=== PATIENT | male | born 1945 | race Caucasian/White ===

== ENCOUNTER 2019-09-30 14:25 | Emergency (ER) | payer MEDICARE, SELFPAY ==
[2019-09-30 14:55] VITALS: BP 149/70; PULSE 106; RESP 20; TEMP 36.9; O2SAT 96
--- NOTE | 2019-09-30 15:11 | ED.GENADULT ---
HPI - General Adult General Chief complaint: Back Pain/Injury Stated complaint: back pain Source: patient Mode of arrival: ambulatory Limitations: no limitations History of Present Illness HPI narrative: 74 y.o. developed pain in his posterior neck, along bridge of his trapezius muscles, and between his shoulder blades which started 5 days ago. He has pain particularly when he goes from supine to standing or sitting to standing. If he moves around the pain started to subside. He has had pain with the movement of his neck in all ranges of motion of new onset. He denies pain numbness weakness in his arms forearms hands of recent onset. He does have chronic problems with loss of sensation in his 1st 2nd and 3rd digits of both hands. 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 He denies any recent falls or injuries. Denies pain in jaw, tongue, throat with chewing. Denies visual changes/headache. Quality: sharp Pain Consistency: constant Relieving factors: movement Related Data Home Medications Medication Instructions Recorded Confirmed amlodipine 10 mg PO DAILY 09/30/19 09/30/19 aspirin,buffd-calcium carb-mag 325 mg PO DAILY 09/30/19 09/30/19 [Buffered Aspirin] losartan 50 mg PO DAILY 09/30/19 09/30/19 metoprolol tartrate 100 mg PO DAILY 09/30/19 09/30/19 simvastatin 20 mg PO DAILY 09/30/19 09/30/19 tamsulosin 0.4 mg PO DAILY 09/30/19 09/30/19 Allergies Allergy/AdvReac Type Severity Reaction Status Date / Time No Known Allergies Allergy Verified 09/30/19 14:44 Review of Systems Constitutional: Constitutional: Reports as per HPI Eyes: Eyes: Reports no additional eye complaints ENT: Denies dysphagia and Denies sore throat Cardiovascular: Cardiovascular: Denies chest pain Respiratory: Respiratory: Denies cough and Denies dyspnea Gastrointestinal: Gastrointestinal: Denies abdominal pain, Denies diarrhea and Denies vomiting Genitourinary: Genitourinary: Denies dysuria Musculoskeletal: Musculoskeletal: Reports no additional musculoskeletal complaints and Denies myalgias Integumentary/Breasts: Skin/Breast: Denies rash Neurologic: Denies focal weakness and Denies numbness Endocrine: Endocrine: Denies polyuria Hematologic/Lymphatic: Hematologic/Lymphatic: Denies easy bruising Allergic/Immunologic: Allergic/Immunologic: Denies lip swelling PMFSH Past Medical History Medical History (Updated 09/30/19 @ 16:12 by Cristobal Rushing MD) HTN (hypertension) Myocardial infarct Surgical History Surgical History (Updated 09/30/19 @ 15:28 by Cristobal Rushing MD) Hx of appendectomy Stented coronary artery Social History Social History (Updated 09/30/19 @ 15:29 by Cristobal Rushing MD) Smoking status: Current every day smoker Exam Narrative: Exam Narrative: Healthy, cheery. Sitting on side of bed. Const: Orientation/consciousness: patient oriented x3 HENMT: Face and sinus: normal facial exam and no sinus tenderness Mouth: Yes moist mucous membranes Other: no temporal artery tenderness. Eyes: EOM: EOMs intact bilaterally Neck: Neck: no lymphadenopathy Chest: Chest palpation & inspection: normal inspection of the chest Resp: Effort & Inspection: normal respiratory effort Auscultation: diminished lung sounds Cardio: Rate: regular rate Rhythm: regular rhythm GI: GI Palp: Yes Soft to palpation, No Tenderness to palpation present (GI) and No Guarding due to palpation present (GI) Back/Spine/Pelvis: Other: Tender along the cervical paraspinal muscles. No tenderness along visions trapezius muscles rhomboids or upper back muscles. Does describe pain here there is tenderness. No muscle spasm appreciated. He has approximately 30? at all it in all cervical directions with pain in shoulders the endpoint. He has full painless shoulder abduction. Spurling's maneuver is positive for pain in the trapezius regions Skin: Ra
[2019-09-30 15:20] VITALS: BP 130/70
[2019-09-30 15:21] VITALS: BP 130/67
[2019-09-30 15:38] LABS: Basophils Absolute Auto 0.03 K/mm3 (0.00-0.10); Basophils Percent Auto 0.2 % (0.0-1.0); Eosinophils Absolute Auto 0.24 K/mm3 (0.02-0.50); Eosinophils Percent Auto 1.9 % (1.0-6.0); Hematocrit 45.1 % (37.0-46.0); Hemoglobin 15.1 g/dL (12.4-15.3); Immature Granulocyte Absolute 0.03 K/mm3 (0.00-0.00); Immature Granulocyte Percent A 0.2 % (0.0-0.0); Lymphocytes Absolute Auto 2.24 K/mm3 (1.10-4.50); Lymphocytes Percent Auto 18.1 % (18.0-42.0); Mean Corpuscular HGB Conc 33.5 g/dL (32.0-36.0); Mean Corpuscular Hemoglobin 30.3 pg (27.0-31.0); Mean Corpuscular Volume 90.6 fL (78.0-102.0); Mean Platelet Volume 9.7 fl (8.7-11.0); Monocytes Absolute Auto 1.64 K/mm3 (0.10-0.90); Monocytes Percent Auto 13.3 % (2.0-11.0); Neutrophils Absolute Auto 8.2 K/mm3 (1.7-7.2); Neutrophils Percent Auto 66.3 % (50.0-70.0); Platelet Count Result 237 K/mm3 (150-420); Red Blood Count 4.98 M/mm3 (4.70-6.10); Red Cell Distribution Width 13.9 % (11.6-14.4); White Blood Count 12.4 K/mm3 (4.8-10.8)
[2019-09-30 15:47] LABS: Anion Gap 17.6 mmol/L (7-16); Blood Urea Nitrogen 17 mg/dL (7-18); CRP 8.7 mg/dL (0.0-0.9); Calcium 9.1 mg/dL (8.5-10.1); Carbon Dioxide 23 mmol/L (21-32); Chloride 104 mmol/L (98-108); Estimated Glomerular Filt Rate > 60; Glucose 123 mg/dL (70-99); Osmolality Calculated 294 mOsm/kg (285-295); Potassium 3.6 mmol/L (3.5-5.1); Sodium 141 mmol/L (136-145)
[2019-09-30 16:36] LABS: Erythrocyte Sedimentation Rate 28 mm/hr (0-20)
[2019-09-30] MEDS: predniSONE 20 MG TABLET PO (16:38)
[2019-09-30 16:42] VITALS: BP 139/70
--- NOTE | 2019-09-30 16:52 | PC.NURSE ---
PREDNISONE AND NORCO SENT TO [facility] - [facility] HAS A DIFFICULT TIME SENDING RX - ONE RX PREDNISONE ONE RX NORCO SENT - PLEASE DISREGARD SECOND ORDER -
== END 2019-09-30 16:50 | disposition home or self-care (01) ==
PROVIDERS: Emergency Provider Family Medicine
DX: M35.3 Polymyalgia rheumatica (principal); I10 Essential (primary) hypertension; I25.2 Old myocardial infarction; F17.200 Nicotine dependence, unspecified, uncomplicated
CPT/HCPCS: 36415; 80048; 85025; 85652; 86140; 99283; A9270; J7512

== ENCOUNTER 2019-10-31 09:55 | Outpatient (CLI) | payer MEDICARE, SELFPAY ==
[2019-10-31 10:18] LABS: Hemoglobin A1C 5.7 % (<5.7)
== END 2019-10-31 09:56 | disposition home or self-care (01) ==
LOC: CHSLAB 09:58
PROVIDERS: PCP Family Medicine; Visit Provider Family Medicine
DX: R73.09 Other abnormal glucose (principal)
CPT/HCPCS: 36415; 83036

== ENCOUNTER 2021-01-22 10:14 | Outpatient (CLI) | payer MEDICARE, SELFPAY ==
--- NOTE | ~2021-01-22 | XR_ITS ---
EXAMINATION: XR lumbar spine 2-3V EXAM DATE: 01/22/2021 10:34 INDICATION: left side back pain x 5 weeks. TECHNIQUE: Lumber spine frontal, lateral, lateral L5-S1 projections for interpretation. There is no prior study for comparison. FINDINGS: Moderate-sized left lateral bridging osteophytes at L2-3. Mild diffuse lumbar disc disease . Mild upper lumbar, mild to moderate lower lumbar facet arthropathy. Mild to moderate abdominal aort ic arteriosclerosis. Sacrum, sacroiliac joints, sacral arcuate lines are intact. Minimal lumbar dextr ocurvature. Vertebral body heights are maintained. The vertebral bodies are aligned in the AP dimensi on. IMPRESSION: 1. Mild to moderate lumbar spondylosis. 2. No acute findings. Reviewed, dictated and finalized at location B.
[2021-01-22 11:12] LABS: Prostate Specific Antigen 1.3 ng/mL (< OR = 4.0)
== END 2021-01-22 10:15 | disposition home or self-care (01) ==
LOC: CHSLAB 10:17
PROVIDERS: PCP Family Medicine; Visit Provider Family Medicine
DX: R35.0 Frequency of micturition (principal); M54.9 Dorsalgia, unspecified; G89.29 Other chronic pain
CPT/HCPCS: 36415; 72100; 84153; G0103

== ENCOUNTER 2021-01-26 08:55 | Outpatient (RCR) | payer MEDICARE, SELFPAY ==
--- NOTE | 2021-01-26 13:48 | PTOPEVAL ---
Thank you for referring Hung Kirby to [facility].? The patient is scheduled to be seen for therapy? ____x/week for ___ weeks. Please review, sign, date and return this plan of care TIMMY. I agree with and certify that the following plan of care is medically necessary. Referring Physician Date Admitting Provider: Attending Provider: Jamarcus Juarez DO Referring Provider: *PT Outpatient Evaluation Start: 01/26/21 09:10 Freq: Status: Active Protocol: Document 01/26/21 09:00 [facility] (Rec: 01/26/21 10:31 [facility] [id number]) Therapy Assessment Status Assessment Status Assessment Status Evaluation Outpatient Past Medical History Cardiovascular History Hx Cardiac Catheterization Yes Hx Coronary Stent Yes Hx Myocardial Infarction Yes Musculoskeletal History Hx Back Pain Yes Evaluation Information Problem Diagnosis dorsalgia Onset 01/22/21 Additional Evaluation Detail oswestry = 44% functionally declined Subjective Information Hung Kirby is a 75 year old Query Text:As Reported By Patient/ male who reports L LBP and Family upper L hip pain. Started 6 weeks ago, suddenly started, can't remember doing something that caused it. No reports of numbness or tingling. Sitting decreases pain, and pain increases with standing after 3 min. Rx for pain killer, and injection into R hip. cyclobenzoprin for pain (takes 3x/day). Difficulty sleeping prior to onset of pain. X-ray last week during appointment w MD, he is not sure if it was either hip or LB - reports that it came back negative. No reported falls in past year. 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
--- NOTE | 2021-03-03 08:52 | PCPTNOTE ---
I agree with and certify that the above recommended change(s) to the plan of care are medically necessary. ? Referring Physician?Date Admitting Provider: Attending Provider: Jamarcus Juarez, Referring Provider: PROGRESS REPORT Hung Kirby has completed a total number of 4 treatment sessions for DORSALGIA since 01/26/21. Summary of Progress: Mr. Kirby has been called on 03/03/21 and reports he is doing well and will not be returning to therapy. Recommendations: Patient will be discharged from skilled PT services due to lack of return/completion of POC. Thank you for referring Hung Kirby to [facility].? The patient is being discharged from skilled PT services as of this date.
== END 2021-02-04 09:44 | disposition home or self-care (01) ==
LOC: CHSPT 08:55
PROVIDERS: PCP Family Medicine; Visit Provider Family Medicine
DX: M54.9 Dorsalgia, unspecified (principal); G89.29 Other chronic pain
CPT/HCPCS: 97014; 97110; 97161; 97530; G0283

== ENCOUNTER 2021-11-19 13:00 | Emergency (ER) | payer MEDICARE, SELFPAY ==
--- NOTE | ~2021-11-19 | XR_ITS ---
XR ankle RT 2V DATE: 11/19/2021 13:46 INDICATION: Ankle and foot injury one week ago. Medial ankle and foot pain. TECHNIQUE: AP and lateral views COMPARISON: None FINDINGS: There is mild soft tissue swelling of the ankle. No fracture or dislocation of the ankle or disruption of the ankle mortise is evident. Distal Achilles tendon tendon calcification. Plantar calcaneal enthesopathy. IMPRESSION: Mild soft tissue swelling; no fracture or dislocation of the ankle Plantar calcaneal enthesopathy Reviewed, dictated and finalized at location A.
--- NOTE | ~2021-11-19 | XR_ITS ---
XR foot RT 2V DATE: 11/19/2021 13:47 INDICATION: Ankle or foot injury one week ago. Pain. TECHNIQUE: AP and lateral views COMPARISON: None FINDINGS: Plantar calcaneal enthesopathy. Distal Achilles tendon calcification. There is mild loss of joint space at the first metatarsophalangeal joint. There is old healed fracture deformity of the distal shaft of the fifth metatarsal bone. No recent fracture or dislocation, periosteal reaction or bone destruction. IMPRESSION: Plantar calcaneal enthesopathy Distal Achilles tendon calcification Mild osteophyte is at first metatarsophalangeal joint Old distal fifth metatarsal shaft fracture Reviewed, dictated and finalized at location A.
[2021-11-19 13:05] VITALS: BP 148/68; PULSE 97; RESP 18; TEMP 36.3; O2SAT 97
--- NOTE | 2021-11-19 13:43 | ED.LOWEXIN ---
HPI - Extremity Injury (Lower) General Chief Complaint: Extremity Injury, Lower Stated Complaint: R ankel/foot pain Source: family Mode of arrival: ambulatory Limitations: no limitations History of Present Illness HPI Narrative: this is a 76-year-old gentleman that presents after he twisted his right foot and ankle after he fell at home hurting his right foot and ankle approximately 1 week ago has been doing okay but over the last 24hours the pain intensified and has been having some trouble with some walking because of pain, and some swelling. complaint: ankle injury and foot injury Injury: Right: ankle ( tenderness with palpation) and foot ( tenderness with palpation and movement) Type of Injury: inversion and eversion Place: home Severity: moderate Severity scale (1-10): 6 Relieving factors: NSAID Exacerbating factors: weight bearing, movement and palpation Context: fall Associated symptoms: swelling Related Data Home Medications Medication Instructions Recorded Confirmed amlodipine 10 mg PO DAILY 11/19/21 11/19/21 atorvastatin 40 mg PO DAILY 11/19/21 11/19/21 losartan 50 mg PO DAILY 11/19/21 11/19/21 metoprolol tartrate 100 mg PO DAILY 11/19/21 11/19/21 tamsulosin 0.4 mg PO DAILY 11/19/21 11/19/21 Allergies Allergy/AdvReac Type Severity Reaction Status Date / Time No Known Allergies Allergy Verified 11/19/21 13:17 Review of Systems Review of Systems: All systems reviewed & are unremarkable except as noted in HPI and below PMFSH Past Medical History Medical History History of ME (myocardial infarction) HTN (hypertension) Hyperlipidemia Myocardial infarct 10-22-2010 Surgical History Surgical History Hx of appendectomy Stented coronary artery Family History Family History Other Family history of coronary artery disease Social History Social History Smoking status: Current every day smoker Tobacco type: cigarettes Additional living arrangements comments: . 1 adult child. Exam Const: General: no acute distress and alert Orientation/consciousness: patient oriented x3 HENMT: Head: normal to inspection Eyes: Conjunctivae: conjunctivae normal Pupils: Equal, round and reactive pupils present Neck: Neck: normal visual inspection, no lymphadenopathy and no meningeal signs Chest: Chest palpation & inspection: normal inspection of the chest Resp: Effort & Inspection: normal respiratory effort Cardio: Rate: regular rate Rhythm: regular rhythm GI: GI Palp: Yes Soft to palpation Percussion: Yes normal to percussion Urinary Catheter: Urinary Catheter: patent and draining Back/Spine/Pelvis: Back: no CVA tenderness Skin: General skin exam: normal color Rashes: no rashes Extrem: Other: Right lower ankle and foot swelling and pain with movement and palpation Psych: Mental Status: mental status grossly normal Course Course Emergency Course: Patient received IM Toradol and after reassessment pain level has improved, will apply Jaciel wrap, and x-rays of the foot and ankle reviewed which showed no acute fractures. Vital Signs Vital signs: Vital Signs Temperature 36.3 C L 11/19/21 13:05 Pulse Rate 97 11/19/21 13:05 Respiratory Rate 18 11/19/21 13:05 Blood Pressure 148/68 H 11/19/21 13:05 Pulse Oximetry 97 11/19/21 13:05 Temperature 36.3 C L 11/19/21 13:05 Pulse Rate 97 11/19/21 13:05 Respiratory Rate 18 11/19/21 13:05 Blood Pressure 148/68 H 11/19/21 13:05 Pulse Oximetry 97 11/19/21 13:05 Critical Care Time Critical Care Time Critical Care Time: No Discharge Plan Discharge Clinical Impression: Ankle sprain and strain Patient Disposition: Home, Self-Care Condition: Stable Instructions: Antibiotic
[2021-11-19] MEDS: KETOROLAC 30 MG/ML VIAL (*BKC) IM (13:53)
[2021-11-19 14:27] VITALS: BP 132/70; PULSE 85; RESP 16; TEMP 36.8; O2SAT 97
== END 2021-11-19 14:30 | disposition home or self-care (01) ==
PROVIDERS: Emergency Provider Emergency Medicine; PCP Family Medicine
DX: S93.401A Sprain of unspecified ligament of right ankle, initial encounter (principal); W19.XXXA Unspecified fall, initial encounter; I10 Essential (primary) hypertension; E78.5 Hyperlipidemia, unspecified; F17.200 Nicotine dependence, unspecified, uncomplicated
CPT/HCPCS: 73600; 73620; 96372; 99283; J1885

== ENCOUNTER 2023-06-07 10:11 | Outpatient (CLI) | payer MEDICARE, SELFPAY ==
[2023-06-07 10:27] LABS: Basophils Absolute Auto 0.03 K/mm3 (0.00-0.10); Basophils Percent Auto 0.4 % (0.0-1.0); Eosinophils Absolute Auto 0.22 K/mm3 (0.02-0.50); Eosinophils Percent Auto 3.3 % (1.0-6.0); Hematocrit 45.4 % (37.0-46.0); Hemoglobin 15.3 g/dL (12.4-15.3); Immature Granulocyte Absolute 0.02 K/mm3 (0.00-0.00); Immature Granulocyte Percent A 0.3 % (0.0-0.0); Lymphocytes Absolute Auto 1.41 K/mm3 (1.10-4.50); Mean Corpuscular HGB Conc 33.7 g/dL (32.0-36.0); Mean Corpuscular Hemoglobin 31.7 pg (27.0-31.0); Mean Platelet Volume 9.3 fl (8.7-11.0); Monocytes Absolute Auto 0.76 K/mm3 (0.10-0.90); Monocytes Percent Auto 11.3 % (2.0-11.0); Neutrophils Absolute Auto 4.3 K/mm3 (1.7-7.2); Neutrophils Percent Auto 63.7 % (50.0-70.0); Platelet Count Result 239 K/mm3 (150-420); Red Blood Count 4.83 M/mm3 (4.70-6.10); Red Cell Distribution Width 13.7 % (11.6-14.4); White Blood Count 6.7 K/mm3 (4.8-10.8)
[2023-06-07 10:59] LABS: Alanine Aminotransferase 12 U/L (16-63); Albumin Level 3.8 g/dL (3.4-5.0); Alkaline Phosphatase 87 U/L (46-116); Anion Gap 12 mmol/L (8-16); Aspartate Amino Transferase 21 U/L (15-37); Bilirubin,Total 0.6 mg/dL (0.00-1.00); Blood Urea Nitrogen 10 mg/dL (7-18); Carbon Dioxide 25 mmol/L (21-32); Chloride 105 mmol/L (98-108); Cholesterol 118 mg/dL (0-200); Estimated Glomerular Filt Rate > 60; Glucose 105 mg/dL (70-99); HDL Direct 38 mg/dL (40-60); LDL Cholesterol Calculated 50 mg/dL (<130); Osmolality Calculated 293 mOsm/kg (285-295); Potassium 4.4 mmol/L (3.5-5.1); Sodium 142 mmol/L (136-145); Total Protein 7.1 g/dL (6.4-8.2); Triglycerides 149 mg/dL (0-150)
== END 2023-06-07 10:12 | disposition home or self-care (01) ==
LOC: CHSLAB 10:13
PROVIDERS: PCP Family Medicine; Visit Provider Family Medicine
DX: I10 Essential (primary) hypertension (principal)
CPT/HCPCS: 36415; 80053; 80061; 85025

== ENCOUNTER 2025-04-18 07:58 | Outpatient (CLI) | payer MEDICARE, SELFPAY ==
--- OUTSIDE RECORDS SUMMARY | 2025-04-18 08:02 | XMS_ITS | Patient Health Record ---
Author Organization [facility] Address [address] [place], [place] [id number] Care Team Providers Care Meeting Coordinator Name Role Phone EsthelaDEVYN jimenez Unavailable [phone] Jamarcus Juarez Unavailable Unavailable Reason For Referral No Information Medications Medication SIG (Take, Route, Frequency, Duration) Notes Start Date End Date Status naproxen sodium 220 MG Oral Capsule [Aleve] ORAL naproxen sodium 220 MG Oral Capsule [Aleve]Original Medicationnaproxen sodium 220 MG Oral Capsule [Aleve] *Reorder from [employer] for eRx and Interaction Alerts* 03/16/2021 Active Plan Of Treatment No Information Insurance Providers Payer Name Payer Address Payer Phone Subscriber Number Group Number Insured Name Patient Relationship to Insured Coverage Start Date Coverage End Date Medicare Part B [place] [address] [place] [phone] [id number] VALERIY GARSIA Self - patient is the insured [facility] ([facility]) ATTN CLAIMS [address] [place] [address] [id number] VALERIY GARSIA Self - patient is the insured
--- OUTSIDE RECORDS SUMMARY | 2025-04-18 08:02 | XMS_ITS | Clinical Summary ---
Author Organization [facility] Address [address] [place] [id number] Care Team Providers Care Risk Investigator Name Role Phone Unavailable Primary Care Provider Unavailabl e Social History Tobacco Use Types Packs/Day Years Used Date Smoking Tobacco: Smoker, Current Status Unknown Sex and Gender Information Value Date Recorded Sex Assigned at Not on file Legal Sex Male 9:59 PM CDT Gender Identity Not on file Sexual Orientation Not on file Last Filed Vital Signs Vital Sign Reading Time Taken Comments Blood Pressure 170/100 07/06/2011 11:06 AM [employer]ICE NETWORK ENGINEER Pulse 80 07/06/2011 11:05 AM VOICE NETWORK ENGINEER Temperature 36.5 C (97.7 F) 07/06/2011 11:05 AM VOICE NETWORK ENGINEER Respiratory Rate 16 07/06/2011 11:05 AM VOICE NETWORK ENGINEER Oxygen Saturation - - Inhaled Oxygen Concentration - - Weight 79.2 kg (174 lb 8 oz) 07/06/2011 11:05 AM VOICE NETWORK ENGINEER Height 172.7 cm (5' 8) 07/06/2011 11:05 AM VOICE NETWORK ENGINEER Body Mass Index 26.53 07/06/2011 11:05 AM VOICE NETWORK ENGINEER Plan of Treatment Health Maintenance Due Date Last Done Comments Hepatitis C 1963 DTaP, Tdap and Td Vaccines ( 1 - Tdap) 1966 Pneumococcal Vaccine: 50+ Ye ars (1 of 1 - PCV) 1997 Zoster Vaccines (1 of 2) 1997 RSV Immunization or 60+ Years (1 - 1-dose 75+ series) 2022 COVID-19 Vaccine ( - 2023-2 5 season) 2024 Meningococcal B Vaccine Aged Out No l onger eligible based on patient's age to complete this topic Meningococcal Vaccine Aged Out No ale sadaf eligible based on patient's age to complete this topic RSV Immunizations Under 20 Months Aged Out No longer eligible based on patient's age to complete this topic
[2025-04-18 08:19] LABS: Hematocrit 53.9 % (37.0-46.0); Hemoglobin 17.1 g/dL (12.4-15.3); Immature Granulocyte Percent A 0.3 % (0.0-0.0); Lymphocytes Absolute Auto 1.13 K/mm3 (1.10-4.50); Mean Corpuscular HGB Conc 31.7 g/dL (32-36); Mean Corpuscular Hemoglobin 28.2 pg (27.0-31.0); Mean Corpuscular Volume 88.8 fL (78.0-102.0); Nucleated Red Blood Cells Absolute Auto 0.00 K/mm3 (0.00-0.00); Nucleated Red Blood Cells Perc 0.0 % (0-0.0); Platelet Count Result 247 K/mm3 (150-420); Red Blood Count 6.07 M/mm3 (4.70-6.10); White Blood Count 6.8 K/mm3 (4.8-10.8)
[2025-04-18 09:05] LABS: Alanine Aminotransferase 22 U/L (6-50); Albumin Level 4.2 g/dL (3.5-5.1); Alkaline Phosphatase 115 U/L (38-126); Anion Gap 10 mmol/L (4-12); Aspartate Amino Transferase 35 U/L (17-59); Bilirubin,Total 0.9 mg/dL (0.2-1.3); Blood Urea Nitrogen 16 mg/dL (9-20); Calcium 9.5 mg/dL (8.4-10.2); Carbon Dioxide 28 mmol/L (22-30); Chloride 103 mmol/L (98-107); Cholesterol 124 mg/dL (0-200); Estimated Glomerular Filt Rate > 60; Glucose 103 mg/dL (65-110); HDL Direct 41 mg/dL; Osmolality Calculated 293 mOsm/kg (285-295); Potassium 4.4 mmol/L (3.4-5.0); Sodium 141 mmol/L (137-145); Total Protein 7.5 g/dL (6.3-8.2); Triglycerides 151 mg/dL (<150)
[2025-04-18 09:35] LABS: Thyroid Stimulating Hormone Reflex 2.070 uIU/mL (0.465-4.68)
== END 2025-04-18 07:59 | disposition home or self-care (01) ==
LOC: CHSLAB 07:59
PROVIDERS: PCP Family Medicine; Visit Provider Family Medicine
DX: E03.9 Hypothyroidism, unspecified (principal); I10 Essential (primary) hypertension
CPT/HCPCS: 36415; 80053; 80061; 84443; 85025